=== PATIENT | female | born 1935 | race Caucasian/White ===

== ENCOUNTER → 2020-08-23 | Outpatient (CLI) | payer MEDICARE ==
--- NOTE | 2020-08-23 13:35 | XR ---
EXAMINATION TYPE: XR scoliosis survey DATE OF EXAM: 08/23/2020 COMPARISON: NONE HISTORY: Scoliosis, back pain TECHNIQUE: AP and lateral views of the thoracolumbar spine are submitted. FINDINGS: There is scoliotic curvature of the thoracolumbar spine convex to the left. Scoliosis is es timated at 31 degrees. 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 No bony fracture identified. No evidence for listhesis. IMPRESSION: Thoracolumbar scoliosis as noted.
== END | disposition home or self-care (01) ==
LOC: RADXRMAIN 12:43
PROVIDERS: ATTEND Neurological Surgery
DX: M41.85 Other forms of scoliosis, thoracolumbar region (principal)
CPT/HCPCS: 72082